=== PATIENT | female | born 1995 | race Hispanic/Latino ===

== ENCOUNTER 2017-09-26 21:28 | Inpatient (IN) | payer BC ==
[2017-09-26] MEDS ORDERED: BUPIVACAINE 0.5% PF 10 ML VIAL ONE (22:04)
[2017-09-26] MEDS ORDERED: Ringers Lactate 1,000 ML IV ONE (22:09)
[2017-09-26] MEDS ORDERED: PROPOFOL 200 MG/20 ML VIAL IV ONE (22:26)
[2017-09-26] MEDS ORDERED: ROCURONIUM 50 MG/5 ML VIAL IV ONE (22:26)
[2017-09-26] MEDS ORDERED: FENTANYL CITR 100 MCG/2 ML ONE (22:27)
[2017-09-26] MEDS ORDERED: LIDOCAINE 2% MPF 5 ML VIAL ONE (22:27)
[2017-09-26] MEDS ORDERED: ONDANSETRON 4 MG/2 ML VIAL IV PRN (22:28)
[2017-09-26] MEDS ORDERED: SODIUM CHLORIDE 0.9% 10ML INJ IV PRN (22:28)
[2017-09-26] MEDS ORDERED: HYDROMORPHONE HCL 1 MG/ML INJ IV PRN (22:28)
--- NOTE | 2017-09-26 22:33 | P.BOP ---
Preoperative diagnosis: acute appendicitis, peritonitis Postoperative diagnosis: same + acute suppurative gangrenous appendix Primary procedure: Laparoscopic appendectomy Estimated blood loss: <10cc Specimen: appendix Findings: acute suppurative gangrenous appendix Anesthesia: General Complications: None Drain(s): JANKI drain Transferred to: Recovery Room
[2017-09-26] MEDS ORDERED: DEXAMETHASONE 10 MG/ML VIAL ONE (22:52)
[2017-09-26] MEDS ORDERED: KETOROLAC 30 MG/ML INJ ONE (22:52)
[2017-09-26] MEDS: NA CHLORIDE 0.9% 1,000 ML IV SCH (23:00)
[2017-09-26] MEDS ORDERED: HYDROCODONE/APAP 5/325 MG TAB PO PRN (23:15)
[2017-09-26] MEDS ORDERED: NEOSTIGMINE 1 MG/ML -5 ML SYRINGE ONE (23:16)
[2017-09-26] MEDS ORDERED: GLYCOPYRROLATE 0.2 MG/ML SYR ONE (23:16)
[2017-09-26] MEDS ORDERED: MEPERIDINE HCL 25 MG/0.5 ML ONE (23:29)
--- NOTE | 2017-09-27 00:07 | OP ---
Date of Procedure: 09/26/2017 Surgeon: Spike Collier MD Preoperative Diagnosis: Acute appendicitis and peritonitis. Postoperative Diagnosis: Acute appendicitis and peritonitis plus acute suppurative gangrenous append ix. Procedure: Laparoscopic appendectomy. Specimen: Appendix. Finding: A Case of suppurative gangrenous appendicitis, retrocecal part of it. Anesthesia: General plus local. Drain: JANKI #10. Indications: This is the case of a 22-year-old patient, who came to us with acute peritonitis. Schreiber sferred to this institution emergently for laparoscopic possible open appendectomy with benefits, alt ernatives, and risks fully explained to the patient, which include but are not limited to infection, bleeding, damage to adjacent structures, anesthesia complication, abscess, [place], or even . She al so understands this may not relieve any symptoms. She might need more than one surgical intervention . She understood. Signed the consent. Procedure In Detail: The patient was emergently brought to the operating room, placed in supine posi tion. Anesthesia was done without complication. Abdominal area was prepped and draped in the usual sterile fashion. Marcaine 0.5% injected for local anesthetic, followed by sharp incision of the skin in the infraumbilical region. Incision was carried down to fascia, which was opened under direct vi demond. Peritoneum was encountered, opened under direct vision. Vicryl #1 placed at the level of the fascia. Lázaro trocar was carefully introduced. Pneumoperitoneum was obtained. I placed 2 more tro cars, 5 mm each one of them, one in the suprapubic area, another one in the left lower quadrant under direct visualization. The patient was placed in Trendelenburg position. We noticed immediately the patient had swelling over the right cecum with colitis and ileitis that extended into a gangrenous s uppurative appendix that goes retrocecal. The right cecum was mobilized carefully opening the white line of Toldt and basically appendix was visualized and carefully released. The base of the appendix seemed to be spared from that gangrenous event, so we created a window in the base of the appendix, transected that with an EndoGIA 45 mm, 3.5, and the mesoappendix with an EndoGIA 45 mm, 2.5. Appendi x was removed from abdominal cavity using an EndoCatch through the umbilical incision. The area was inspected once again. Profuse irrigation of the area was done. There was still swelling over the ar ea around the ileum, around the cecum. I preferred to leave a JANKI drain in that area exiting through one of the trocar sites and secured in place with 3-0 nylon. Once again, inspection was done. Hemos tasis was obtained. Profuse irrigation was done once again until clear and suction was done. Once a gain, clips were intact. No bleeding. No bowel leak. At that moment, I proceeded to remove the tro cars under direct vision, deflated pneumoperitoneum, closed the fascia with #1 Vicryl. Irrigated sub cutaneous incision and closed that with 3-0 chromic and skin with lanny. Sponge count and instrume nt counts were correct. The patient tolerated the procedure well. The patient was sent to recovery in stable condition. KLAUDIA/TAWANA Voice ID: [id number] Report ID: [id number]
[2017-09-27 01:10] VITALS: BMI 39.9
[2017-09-27] MEDS ORDERED: CEFOXITIN/SWI 1gm 2 GM/20 ML SYR ONE (01:13)
[2017-09-27] MEDS ORDERED: DIPHENHYDRAMINE 50 MG/ML VIAL IV ONE ×3 (01:15→21:37)
[2017-09-27] MEDS: METRONIDAZOLE 500mg IVPB 500 MG/100 ML BAG IV SCH ×3 (01:36→12:55)
--- NOTE | 2017-09-27 01:47 | HP ---
Date of Admission: 09/26/2017 Reason For Service: Right lower quadrant pain with peritonitis. History Of Present Illness: This is a case of a 22-year-old patient, coming and visiting from [facility]. 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 Found to have appendicitis and transferred to [facility]. The patient states some nausea, some vomiting but no dysuria, hematuria, hematochezi a, or melena. The patient denies any recent traveling out of the country other than coming from [facility] to [place]. The patient denies any other friends or family members sick at home. Review of Systems: Gastrointestinal: As above. Constitutional: Denies any fever. Respiratory: Denies any shortness of breath. Genitourinary: Denies any dysuria, hematuria, or vaginal discharge. Allergies: DEPAKOTE. Past Medical History: Epilepsy. Social History: She does not smoke. She does not drink alcohol. Family History: Noncontributory. Physical Examination: General: Patient is awake and alert. HEENT: The pupils are anicteric. Neck: Supple. Chest: Clear. Abdomen: Right lower quadrant guarding with rebound. Peritonitis present. Tenderness. Breasts: Deferred. Pelvic: Deferred. Rectal: Deferred. Extremities: Good capillary refill. Laboratory Data: Blood work shows WBC count of 21.4 with hemoglobin of 14.6. UA shows nitrite negat pepe. test negative. Diagnostic Data: CAT scan of the abdomen and pelvis done in [facility] interpreted by their radiologis t as distention and thickening of the appendix with adjacent fat inflammation and ill-defined free fl uid compatible with acute appendicitis. Thickening of the adjacent right psoas presents. Prominent right lower quadrant mesenteric lymph node. Thickening of the colon suggestive of inflammation. Assessment And Plan: This is a 22-year-old patient visiting from out of town with acute appendicitis , mesenteric adenitis, colitis, and ileitis. The patient was transferred to this institution. Evalu ated. Fully explained the benefits, alternatives, and risks of emergent laparoscopic, possible open appendectomy with benefits, alternatives, and risks including, but not limited to infection, bleeding , damage to adjacent structures, anesthesia complication, abscess, hematoma, [place], or even . She also understands this may not relieve any symptoms. She might need more than one surgical interventi on. She understood. Signed a consent. THOM Voice ID: [id number]
[2017-09-27] MEDS: NA CHLORIDE 0.9% 1,000 ML IV SCH ×2 (04:48→17:54)
[2017-09-27 05:19] LABS: Absolute Lymphocytes (CBC) 0.7 K/uL (0.7-4.9); Absolute Monocytes 1.3 K/uL (0.1-1.3); Absolute Neutrophil 20.1 K/uL (1.8-8.0); Basophils % 0.2 % (0-1.3); Hematocrit 41.2 % (36.0-45.0); Lymphocytes % 3.3 % (15.3-44.8); MCH 30.7 pg (27.0-35.0); MCV 89.9 fL (80-100); MPV 9.7 fL (7.6-11.3); Monocytes % 5.8 % (3.3-12.3); RBC Red Blood Cell Count 4.59 M/uL (3.86-4.86)
[2017-09-27] MEDS: CEFOXITIN 1 GM in NA CHLORIDE 0.9% 100 ML IVPB SCH ×3 (05:39)
[2017-09-27 05:58] LABS: BUN Blood Urea Nitrogen 10 mg/dL (6-20); Bicarbonate 26 mEq/L (21-31); Glucose Level 135 mg/dL (65-120); Sodium Level 137 mEq/L (135-145)
[2017-09-27 07:04] LABS: Blood Morphology Comment NOT SEEN (NOT SEEN); Platelet Estimate ADEQ
[2017-09-27] MEDS: PANTOPRAZOLE 40 MG INJ IVP SCH (09:27)
[2017-09-27] MEDS ORDERED: CEFOXITIN/SWI 1gm 1 GM/10 ML SYR IV SCH (12:00)
[2017-09-27] MEDS ORDERED: DIPHENHYDRAMINE 25 MG TAB/CAP PO ONE (12:19)
[2017-09-27] MEDS: CIPROFLOXACIN HCL 500 MG TAB PO SCH ×2 (12:54→20:10)
--- NOTE | 2017-09-27 13:49 | P.PN ---
Subjective Date of Service: 09/27/17 Subjective: Tolerating diet, Ambulating, Improving Review of Systems General: Fever, Chills (no), Sweats (no), Malaise Respiratory: Unremarkable Cardiovascular: Unremarkable Gastrointestinal: Nausea (no), Vomiting (no), Diarrhea (no), Distention, Constipation (no), Melena (no), Hematochezia (no), As per HPI Genitourinary: Unremarkable Musculoskeletal: Unremarkable Integumentary: Other (hives) Physical Examination - Vital Signs Temperature: 100.3 F Blood Pressure: 115/69 Pulse: 100 Respirations: 16 Pulse Ox (%): 99 - Physical Exam General: Alert, In no apparent distress, Oriented x3, Oriented x1, Cooperative HEENT: PERRLA, EOMI Neck: Supple Respiratory: Normal air movement Cardiovascular: No edema, Normal pulses Gastrointestinal: Hypoactive, Soft and benign Musculoskeletal: No erythema Integumentary: Skin lesion (hives, no pruritus.) Neurological: Normal speech Rectal: Deferred - Studies Laboratory Data (last 24 hrs) 09/27/17 04:48: Sodium 137, Potassium 4.0, BUN 10, Creatinine 0.66, Glucose 135 H 09/27/17 04:48: WBC 22.2 H*, Hgb 14.1, Hct 41.2, Plt Count 201 Assessment And Plan - Plan iv abx change abx from cephalosporin/Pcn to quinolone benadryl oob is advance to full liquid
[2017-09-27] MEDS ORDERED: TRAMADOL 37.5mg/APAP 325mg PER TAB PO PRN (14:59)
[2017-09-27] MEDS ORDERED: DIPHENHYDRAMINE 25 MG TAB/CAP PO PRN (16:51)
[2017-09-27 22:10] LABS: Absolute Lymphocytes (CBC) 1.7 K/uL (0.7-4.9); Absolute Monocytes 0.8 K/uL (0.1-1.3); Absolute Neutrophil 9.2 K/uL (1.8-8.0); Basophils % 0.3 % (0-1.3); Eosinophils % 0.2 % (0-4.4); Hematocrit 42.3 % (36.0-45.0); Lymphocytes % 14.3 % (15.3-44.8); MCH 30.2 pg (27.0-35.0); MCV 91.7 fL (80-100); Monocytes % 6.4 % (3.3-12.3); RBC Red Blood Cell Count 4.61 M/uL (3.86-4.86)
[2017-09-27 22:20] LABS: BUN Blood Urea Nitrogen 11 mg/dL (6-20); Bicarbonate 23 mEq/L (21-31); Glucose Level 97 mg/dL (65-120); Potassium 3.5 mEq/L (3.6-5.0); Sodium Level 136 mEq/L (135-145)
[2017-09-28] MEDS: NA CHLORIDE 0.9% 1,000 ML IV SCH ×2 (03:44→15:00)
[2017-09-28 05:37] LABS: Absolute Lymphocytes (CBC) 1.5 K/uL (0.7-4.9); Absolute Monocytes 0.3 K/uL (0.1-1.3); Absolute Neutrophil 5.2 K/uL (1.8-8.0); Eosinophils % 0.7 % (0-4.4); Hematocrit 40.6 % (36.0-45.0); Lymphocytes % 21.5 % (15.3-44.8); MCH 30.7 pg (27.0-35.0); MPV 9.6 fL (7.6-11.3); RBC Red Blood Cell Count 4.41 M/uL (3.86-4.86)
[2017-09-28] MEDS: OXCARBAZEPINE 600 MG PO SCH (09:00)
--- NOTE | 2017-09-28 09:52 | P.PN ---
Subjective Date of Service: 09/28/17 Chief Complaint: Appendicitis Subjective: Improving (Patient feels much better, no nausea, ambulatory, pain well controlled, tolerating liquids) Physical Examination - Vital Signs Temperature: 99.7 F Blood Pressure: 120/71 Pulse: 98 Respirations: 18 Pulse Ox (%): 100 - Physical Exam General: Alert, In no apparent distress, Cooperative HEENT: Mucous membr. moist/pink Gastrointestinal: Other (soft, mild appropriate TTP, ND, incisions clean and dry ) Neurological: Normal speech - Studies Laboratory Data (last 24 hrs) 09/28/17 04:32: WBC 7.1 D, Hgb 13.5, Hct 40.6, Plt Count 193 09/27/17 21:58: Sodium 136, Potassium 3.5 L, BUN 11, Creatinine 0.70, Glucose 97 09/27/17 21:58: WBC 11.7 H D, Hgb 13.9, Hct 42.3, Plt Count 214 Assessment And Plan - Current Problems (Diagnosis) (1) Acute appendicitis Onset Date: 09/27/17 Current Visit: Yes Status: Acute Plan: -- cross coverage for Dr. Collier -- - Patient is doing well, pain well controlled with minimal meds - ambulatory - increased appetite, tolerated clears, advance today - incentive spirometry - DC planning for AM
[2017-09-28] MEDS: CIPROFLOXACIN HCL 500 MG TAB PO SCH ×2 (10:44→22:04)
[2017-09-28] MEDS: PANTOPRAZOLE 40 MG INJ IVP SCH (10:44)
[2017-09-28] MEDS: FOLIC ACID 1 MG TABLET PO SCH (10:44)
[2017-09-29 00:29] VITALS: O2SAT 100
[2017-09-29] MEDS: FOLIC ACID 1 MG TABLET PO SCH (08:45)
[2017-09-29] MEDS: OXCARBAZEPINE 600 MG PO SCH (08:45)
[2017-09-29] MEDS: PANTOPRAZOLE 40 MG INJ IVP SCH (08:46)
[2017-09-29] MEDS: CIPROFLOXACIN HCL 500 MG TAB PO SCH (08:46)
[2017-09-29 10:17] VITALS: BP 114/75; TEMP 98
--- NOTE | 2017-12-25 10:01 | P.DS ---
Admission Date: 09/26/17 Discharge Date: 12/25/17 Disposition: ROUTINE DISCHARGE Discharge Condition: GOOD Reason for Admission: Appendicitis Procedures: Laparoscopic Appendectomy - Problems (1) Acute appendicitis Onset Date: 09/27/17 Status: Acute Brief History of Present Illness: 22 year old woman here from [facility] who developed abdominal pain , workup revealed acute appendicitis with peritonitis Hospital Course: Patient had slow recovery post op, ultimately did well, ambulatory pain well controlled, tolerated diet well Vital Signs/Physical Exam: Temp Pulse Resp BP Pulse Ox 98.0 F 90 18 114/75 99 09/29/17 08:00 09/29/17 08:00 09/29/17 08:00 09/29/17 08:00 09/29/17 08:00 General: Alert, In no apparent distress, Cooperative HEENT: Mucous membr. moist/pink Respiratory: Clear to auscultation bilaterally, Normal air movement Gastrointestinal: Soft and benign, No ascites, No tenderness, No masses, No rebound, No guarding, Other (scars healing well) Neurological: Normal gait, Normal speech Laboratory Data at Discharge: WBC 7.1 K/uL (4.3-10.9) D 09/28/17 04:32 Hgb 13.5 g/dL (12.0-15.0) 09/28/17 04:32 Hct 40.6 % (36.0-45.0) 09/28/17 04:32 Plt Count 193 K/uL (152-406) 09/28/17 04:32 Sodium 136 mEq/L (135-145) 09/27/17 21:58 Potassium 3.5 mEq/L (3.6-5.0) L 09/27/17 21:58 BUN 11 mg/dL (6-20) 09/27/17 21:58 Creatinine 0.70 mg/dL (0.44-1.00) 09/27/17 21:58 Glucose 97 mg/dL (65-120) 09/27/17 21:58 Home Medications: Folic Acid 1 mg PO DAILY 09/27/17 Oxcarbazepine [Oxtellar Xr] 600 mg PO DAILY 09/27/17 Ciprofloxacin HCl [Cipro 500 MG Tablet] 500 mg PO BID #12 tab 09/29/17 Tramadol HCl/Acetaminophen [Ultracet Tablet] 1 each PO Q4HP PRN #30 tablet 09/29 metroNIDAZOLE [Flagyl] 500 mg PO Q6H #20 tablet 09/29/17 New Medications: Ciprofloxacin HCl [Cipro 500 MG Tablet] 500 mg PO BID #12 tab metroNIDAZOLE [Flagyl] 500 mg PO Q6H #20 tablet Tramadol HCl/Acetaminophen [Ultracet Tablet] 1 each PO Q4HP PRN #30 tablet PRN Reason: Pain Patient Discharge Instructions: If unable to follow up with Dr. Collier, I recommend you follow up with a surgeon in your home town in [facility]. Diet: Regular Activity: No lifting more than 10 lbs Followup: Spike Collier MD [ACTIVE - CAN ADMIT] - 1 Week (Follow up in office in 1 week. Call to schedule an appointment.)
== END 2017-09-29 11:05 | disposition home or self-care (01) | DRG 340 ==
LOC: 2ND 22:29 → PREOBSVTOIN 22:54
PROVIDERS: ADMIT Surgery; ATTEND Surgery
PROC: 0DTJ4ZZ Resection of Appendix, Percutaneous Endoscopic Approach (ICD-10-PCS; principal; 2017-09-26 22:00)
DX: K35.3 Acute appendicitis with localized peritonitis (principal); K52.9 Noninfective gastroenteritis and colitis, unspecified; G40.909 Epilepsy, unspecified, not intractable, without status epilepticus
CPT/HCPCS: 36415; 80048; 85025; 88304; 88305; C9113; J0694; J1100; J2175; J2405; J2710; J3010; J7030